=== PATIENT | female | born 1950 | race African-American/Black ===

== ENCOUNTER 2021-04-02 12:51 | Outpatient (CLI) | payer MEDICARE, OTHER | END 2021-04-02 12:52 | disposition home or self-care (01) | LOC: CSHRAD 12:51 | PROVIDERS: ATTEND Family Medicine | DX: M54.41 Lumbago with sciatica, right side (principal) | CPT/HCPCS: 72100 ==

== ENCOUNTER → 2022-04-14 07:43 | Emergency (ER) | payer MEDICARE, OTHER | END | disposition home or self-care (01) | LOC: CSHERS 07:43 | DX: G89.29 Other chronic pain (principal); M54.50 Low back pain, unspecified; I10 Essential (primary) hypertension; Z79.899 Other long term (current) drug therapy | CPT/HCPCS: 99283 ==

== ENCOUNTER 2024-01-26 15:35 | Outpatient (CLI) | payer MEDICARE, OTHER | END 2024-01-26 15:36 | disposition home or self-care (01) | LOC: CSHMAMMO 15:35 | PROVIDERS: ATTEND Family Medicine | DX: Z12.31 Encounter for screening mammogram for malignant neoplasm of breast (principal); Z80.3 Family history of malignant neoplasm of breast; Z91.89 Other specified personal risk factors, not elsewhere classified | CPT/HCPCS: 77063; 77067 ==